=== PATIENT | female | born 1955 | race Caucasian/White ===

== ENCOUNTER 2020-04-12 01:09 | Emergency (ER) | payer MEDICARE, BC ==
[~2020-04-12] VITALS: Ht 167.6 cm; Wt 66.0 kg
[2020-04-12] MEDS ORDERED: SODIUM CHLORIDE 0.9% 1,000 ML IV ONE (03:35)
[2020-04-12 04:21] LABS: CHLORIDE 105 mEq/L (98-107)
[2020-04-12 04:22] LABS: BASOPHILS % 0.3 % (0.0-2.0); EOSINOPHILS % 0.4 % (0.0-5.0); HEMOGLOBIN. 11.7 g/dL (12.0-16.0); LYMPHOCYTES % 15.6 % (20.0-50.0); MEAN CORPUSCULAR HEMOGLOBIN 32.4 pg (28.0-32.0); MEAN CORPUSCULAR VOLUME 93.9 fL (81.0-99.0); MEAN PLATELET VOLUME 8.2 fl (7.4-10.4); MONOCYTES % 5.8 % (2.0-8.0); NEUTROPHILS % 77.9 % (40.0-76.0); PLATELET 191 x1000/uL (130-400); RED BLOOD CELL COUNT 3.62 mill/uL (4.2-5.4)
[2020-04-12 06:20] VITALS: BP 119/64
== END 2020-04-12 07:17 | disposition home or self-care (01) ==
LOC: ER 01:09
DX: T88.1XXA Other complications following immunization, not elsewhere classified, initial encounter (principal); R42 Dizziness and giddiness; R53.1 Weakness; R03.0 Elevated blood-pressure reading, without diagnosis of hypertension; D64.9 Anemia, unspecified; R94.31 Abnormal electrocardiogram [ECG] [EKG]; E03.9 Hypothyroidism, unspecified; Z86.59 Personal history of other mental and behavioral disorders
CPT/HCPCS: 36415; 71045; 80053; 84484; 85025; 93005; 99285; J7030